=== PATIENT | male | born 1950 | race Caucasian/White ===

== ENCOUNTER → 2017-05-10 15:56 | Outpatient (CLI) | payer MEDICARE, BC ==
[2016-03-02 07:16] VITALS: BMI 26.3
[~2017-05-10 15:56] MED LIST: ASPIRIN 81 MG E81 MG PO; BAYER CHEWABLE81 MG PO; CARAFATE1 G PO; COUMADIN5 MG PO; COZAAR50 MG PO; LIPITOR20 MG PO; MS CONTIN30 MG PO; MULTIPLE VITAMI1 TA1 PO; NORCO 10/325 TA1 TA1 PO; PLAVIX75 MG PO
== END | disposition home or self-care (01) ==
LOC: D.MRI 15:56
DX: M19.019 Primary osteoarthritis, unspecified shoulder (principal)

== ENCOUNTER → 2017-05-18 21:19 | Outpatient (CLI) | payer MEDICARE, BC ==
[2016-03-02 07:16] VITALS: BMI 26.3
== END | disposition home or self-care (01) ==
LOC: D.LABREF 21:19
DX: Z11.8 Encounter for screening for other infectious and parasitic diseases (principal)

== ENCOUNTER 2017-06-05 05:52 | Inpatient (IN) | payer MEDICARE, BC ==
[2017-05-31 13:25] LABS: BASOPHILS 0.3 % (0-2); EOSINOPHILS 3.2 % (0-7); HEMATOCRIT 38.8 % (42.0-54.0); HEMOGLOBIN 12.8 g/dL (13.5-17.5); IMMATURE GRANULOCYTES 0.2 % (0-5); LYMPHOCYTES 18.6 % (15-50); MCH 31.6 pg (26.0-34.0); MCV 95.8 fL (80.0-100.0); MEAN PLATELET VOLUME 10.1 fL (7.4-10.4); MONOCYTES 8.8 % (2-11); NEUTROPHILS 68.9 % (40-80); PLATELET COUNT 208 10x3/uL (130-400); RBC 4.05 10x6/uL (4.20-6.10); RDW 13.8 % (11.5-14.5); WBC 6.3 10x3/uL (4.8-10.8)
[2017-05-31 13:33] LABS: APTT 27.3 SECONDS (22.8-39.4)
[2017-05-31 13:34] LABS: INR 0.97 (0.85-1.17); PROTIME 12.7 SECONDS (11.6-15.0)
[2017-05-31 13:37] LABS: CALC OSMOLALITY 282 mosm/kg (275-300); CALCIUM 8.8 mg/dL (8.5-10.1); CARBON DIOXIDE 30.1 mmol/L (21.0-32.0); CHLORIDE - SERUM 105 mmol/L (98-107); CREATININE - SERUM 0.9 mg/dL (0.6-1.3); POTASSIUM - SERUM 4.2 mmol/L (3.5-5.1); SODIUM 141 mmol/L (136-145); UREA NITROGEN 22 mg/dL (7-18); eGFR NON AFRICAN AMERICAN 89 mL/min (90-120)
[2017-05-31 13:55] LABS: GLUCOSE 84 mg/dL (74-106)
[2017-05-31 14:00] LABS: APPEARANCE HAZY (CLEAR); BILIRUBIN NEGATIVE (NEGATIVE); COLOR YELLOW (YELLOW); EPITHELIAL CELLS OCC /hpf (0-5); GLUCOSE NEGATIVE (NEGATIVE); KETONE NEGATIVE (NEGATIVE); LEUKOCYTE ESTERASE TRACE (NEGATIVE); NITRITE NEGATIVE (NEGATIVE); PROTEIN NEGATIVE (NEGATIVE); SPECIFIC GRAVITY 1.015 (1.005-1.020); UROBILINOGEN NORMAL (NORMAL); WHITE CELLS - URINE 0-5 /hpf (0-5)
[2017-05-31 14:01] LABS: BACTERIA FEW /hpf (NONE SEEN); MUCUS <1+ /lpf (NONE SEEN)
[~2017-06-05] VITALS: Ht 188 cm; Wt 72.7 kg
[~2017-06-05 05:52] MED LIST changes: +ARICEPT5 MG PO; +DURAGESIC1 PATCH .7 TRANSDERM
[2017-06-05 08:50] VITALS: BP 119/74; BMI 20.5
[2017-06-05 14:04] VITALS: BP 124/74
--- NOTE | 2017-06-05 14:23 | NUR ---
RECIEVED TO ROOM 2210 VIA BED FROM RECOVERY ROOM AWAKE AND ALERT ISC IN PLCE PRISON OFFICER FENTNYL CONTROLLED PER ANESTHESIA NOTED TO LEFT SHOULDER. DRESSING IN PLACE TO LEFT SHOULDER ABDUCTOR SLING APPLIED PER THIS NURSE AND RECOVERY ROOM NURSE. PT TOLERATED WELL PAIN LEVEL STATED 0 AT THIS TIME. CALL LIGHT IN REACH SIDE RAILS UP X 2 FAMILY AT BEDSIDE. PT WITH NO DISTRESS NOTED
[2017-06-05 16:41] VITALS: Ht 188 cm; Wt 72.7 kg
[2017-06-06] VITALS: BP 104/68
--- NOTE | 2017-06-06 03:47 | NUR ---
PATIENT RESTING IN BED WITH EYES CLOSED AND NO VISIBLE SIGNS OF DISTRESS. BED IN LOWEST POSITION AND CALL LIGHT WITHIN REACH.
[2017-06-06 04:00] VITALS: BP 118/67
[2017-06-06 06:24] LABS: HEMATOCRIT 39.1 % (42.0-54.0); HEMOGLOBIN 12.9 g/dL (13.5-17.5); MCH 31.4 pg (26.0-34.0); MCV 95.1 fL (80.0-100.0); MEAN PLATELET VOLUME 10.5 fL (7.4-10.4); RBC 4.11 10x6/uL (4.20-6.10); RDW 13.8 % (11.5-14.5); WBC 8.8 10x3/uL (4.8-10.8)
--- NOTE | 2017-06-06 07:25 | NUR ---
PATIENT RECEIVED ALERT IN MID COOPER POSITION. NO SIGNS OF DISTRESS NOTED. DENIES PAIN AND OTHER NEEDS. DRESSING TO LEFT SHOULDER CLEAN, DRY AND INTACT. SLING IN PLACE. SIDE RAILS UP X2. BED IN LOW POSITION. CALL LIGHT IN REACH.
[2017-06-06 07:55] VITALS: BP 106/76
--- NOTE | 2017-06-06 08:09 | NUR ---
PATIENT ALERT IN BED. NO SIGNS OF DISTRESS NOTED. SCHEDULED MEDICATION ADMINISTERED. DENIES NEEDS. SIDE RAILS UP X2. BED IN LOW POSITION. CALL LIGHT IN REACH.
--- NOTE | 2017-06-06 11:03 | NUR ---
PATIENT ALERT IN BED WATCHING TV. NO SIGNS OF DISTRESS NOTED. DENIES NEEDS. SCHEDULED MEDICATION ADMINISTERED. BED IN LOW POSITION. SIDE RAILS UP X2. CALL LIGHT IN REACH.
[2017-06-06 12:19] VITALS: BP 107/63
--- NOTE | 2017-06-06 14:00 | NUR ---
UP AMBULATING IN HALLWAY WITH PT. NO SIGNS OF DISTRESS NOTED.
[2017-06-06 15:59] VITALS: BP 116/65
[2017-06-06] MEDS ORDERED: XANAX2 MG PO (16:08)
--- NOTE | 2017-06-06 16:13 | OP ---
PATIENT NAME: TEE AVILES MEDICAL RECORD: [id number] :46 LOCATION:[id number] ADMISSION DATE:06/05/17 SURGEON: JAN BELL DO DATE OF OPERATION: 06/05/2017 PROCEDURE PERFORMED: Left reverse total shoulder arthroplasty. PREOPERATIVE DIAGNOSES: Left shoulder osteoarthritis and rotator cuff arthropathy. POSTOPERATIVE DIAGNOSES: Left shoulder osteoarthritis and rotator cuff arthropathy. INDICATIONS: Mr. Aviles is a 66-year-old male that has had left shoulder pain and limited motion for quite sometime. He was seen in the office and was tired of it hurting him and affecting his life. He does not seem to have any strength in his rotator cuff, and on x-ray, was seen to have a high-riding humeral head as well as end-stage osteoarthritis of his glenohumeral joint from the left. Reverse total shoulder was discussed with him and he decided he would like to do that in order to get function back of his arm and alleviate pain and be able to do his activities of daily living. 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 He was consented in the office and informed of risks and benefits of the procedure. SURGEON: Jan Bell DO DESCRIPTION OF PROCEDURE: The patient was given a block in the preoperative area. The patient was taken to the operative suite, laid in the supine position, given general anesthetic, and LMA was placed. The patient was then positioned in the beach chair position and the left arm was prepped and draped in sterile fashion. Time-out was performed and everyone was in agreement with the time-out. The patient was given 900 mg of clindamycin preoperatively. Once the patient was prepped and draped, an incision was made through the deltopectoral interval. Dissection was carefully made down and the cephalic vein was taken laterally. D-pec was released at the superior centimeter of the pec, was released off the humerus. The clavipectoral fascia was then breached and opened up. The biceps tendon was noted to be in the groove. It was tenodesed to the pec tendon and then tenotomy was performed at the same level. The subscapularis tendon was tagged at that time and the capsule was released in a peel method off of the anterior humerus. External rotation was made. Then, the humerus was exposed and the intramedullary guide was placed in the humerus and a cut was made with 30 degrees of retroversion. Once this was done, the glenoid was exposed. The subscapularis tendon was released off the anterior portion of the glenoid with a Martin and osteophytes were removed off the humerus. They were very large and a large osteophyte free floating in the shoulder joint itself was encountered and removed as well. The rotator cuff had been seen to be torn off the supraspinatus. There was no site at the insertion on the humerus whatsoever. Once the humerus was cut and the glenoid was then exposed, the superior labrum and the remaining bicep tendon were removed. The centering pin was then placed in the center of the glenoid and was reamed over with the reamer and then the Afrin reamer was used to finish reaming for the glenosphere. Once this was done, we used the baseplate, which was drilled for, for which we used a 25-mm baseplate with a 30-mm screw and then that was placed. A 38-mm locking screw was placed superiorly and a 23-mm locking screw was placed inferiorly on the baseplate. These were both placed and then a 36-mm glenosphere with a 4-mm lateralized offset was placed. Once that was done, the OPERATIVE REPORT [id number] TEE AVILES wound was irrigated and the humerus was then prepared up to a #6 stem and felt to have good cortical contact. The implant was trialed at that time. Standard humeral stem ____ was used and a 6-mm poly was used on the 0-mm tray. Once that was trialed, it was seen to be in good position in the conjoined tendon with appropriate tightness and did not dislocate whatsoever. The shoulders were ranged and we decided to use that implant. The implant trial was then removed and irrigated the wound as well as the humerus and the final implant was placed. Once this was done, the wound was irrigated again and dried very well and then Da was placed about the wound. ____ shoulder system was used. Once that was done, again it was trialed and seen to be in good position and had good range of motion. Then, the deltopectoral interval was closed with #0 Vicryl in a [id number]-sy-cyndf fashion. The skin was then closed with 2-0 Vicryl in inverted interrupted fashion and Prineo was placed on the skin for closure. Once this was done and the Prineo was dried, Adaptics, 4 x 4s, and ABD were placed over the incision. The patient was placed in a sling, awakened in stable condition, and taken to recovery. Blood loss was 100 mL. TRANSINT:[id number] Voice Confirmation ID: [id number] DOCUMENT ID: [id number] JAN BELL DO at 1613 CC: [id number] DICTATION DATE: 06/05/17 1315 BUSINESS SERVICES VICE PRESIDENT: 06/05/17 1527 ADM IN [place] [id number] [place] [id number]
--- NOTE | 2017-06-06 16:30 | NUR ---
PATIENT AMBULATED OFF UNIT WITH FAMILY
--- NOTE | 2017-06-06 17:45 | NUR ---
BACK TO ROOM WITH FAMILY PRESENT.
[2017-06-06 20:00] VITALS: BP 105/71
--- NOTE | 2017-06-06 21:51 | NUR ---
REC'D LYING IN BED. ALERT AND ORIENTED X4. REPORTED PAIN 6/10. WILL ADMIN PAIN MEDS PRESCRIBED. IV TO RIGHT AC WAS BLEEDING HEAVILY. REMOVED, CATHETER BENT BUT STILL INTACT. WILL CONT TO MONITOR THE AREA. PATIENT REFUSED TO HAVE ANOTHER IV PLACED. EDUCATED ON IF HE NEEDED HIS BENADRYL OR ZOFRAN THAT HE WOULD NOT BE ABLE TO HAVE IT TONIGHT DUE TO THERE NOT BEING AN IV PLACED, VERBALIZED UNDERSTANDING. NO DISTRESS NOTED. DENIED FURTHER NEEDS AT THIS TIME. INSTRUCTED TO CALL IF NEEDED ANYTHING, VERBALIZED UNDERSTANDING. BED LOW, LOCKED CALL LIGHT IN REACH.
--- NOTE | 2017-06-06 22:30 | NUR ---
PATIENT IS AWAKE, ALERT AND ORIENTED X'S 4. RESPIRATIONS ARE EVEN AND ORIENTED X'S 4. PATIENT HAS LEFT ARM IN A SLING, ELEVATED ON A PILLOW. PATIENT REQUESTED ICE WATER, BROUGHT HIM SOME ICE WATER. HE DENIES ANY OTHER NEEDS AT THIS TIME.
[2017-06-07] VITALS: BP 110/65
[2017-06-07 04:00] VITALS: BP 103/61
[2017-06-07 05:36] LABS: HEMATOCRIT 33.5 % (42.0-54.0); MCH 31.5 pg (26.0-34.0); MCHC 32.8 g/dL (31.0-37.0); MEAN PLATELET VOLUME 10.1 fL (7.4-10.4); RBC 3.49 10x6/uL (4.20-6.10); RDW 13.9 % (11.5-14.5)
[2017-06-07 05:37] LABS: WBC 5.7 10x3/uL (4.8-10.8)
--- NOTE | 2017-06-07 07:52 | NUR ---
AWAKE AND ALERT. ORIENTED X3. NO C/O AT THIS TIME. LUNGS ARE CLEAR BILATERALLY, NO COUGH NOTED. SKIN IS INTACT WITHOUT REDNESS EXCEPT INCISION TO LEFT SHOULDER WHICH IS CLEAN AND DRY. NO DRESSING AT THIS TIME. DR. BELL HERE. DISCHARGE ORDERS RECEIVED. NO IV ACCESS. SLING IS OFF AT THIS TIME. DENIES NEEDS.
[2017-06-07 07:57] VITALS: BP 129/71
[2017-06-07] MEDS ORDERED: OXYCODONE HCL5 MG PO (07:58)
--- NOTE | 2017-06-07 09:15 | NUR ---
Patient Name: TEE AVILES Admission Status: Elective Accout number: [id number] Admission Date: 06-05-2017 : 1950 Admission Diagnosis:PRIMARY OSTEOARTHRITIS, LEFT SHOULDER Attending: JAN BELL Current LOS: 2 Anticipated DC Date: Planned Disposition: Home Primary Insurance: MEDICARE A & B Discharge Planning Comments: CM met with patient to assess discharge planning needs. Patient will be discharging home to his sister's house in [facility]. Patient stated that his son, Freddie will be the one to drive him home. He denies any HH needs and does not have any DME except he has an Ice Machine from Dr Bell's office. Pt states his home environment is safe. CM will continue to assist as needed for discharge planning needs. PCP: Livan Rubalcava 1 Kimberly Malave (sister) [phone] Freddie Aviles (son) [phone] Financial Institution President: Leilani Lerma * Is the patient Alert and Oriented? Yes 0 * How many steps to enter\exit or inside your home? 1 0 * PCP Livan 0 * Pharmacy [facility] in [facility] 0 * Preadmission Environment Home with Family 0 * ADLs Independent 0 * Other Equipment ice machine 0 * List name and contact numbers for known caregivers / representatives who currently or will assist patient after discharge: Kimberly Malave (sister) [phone] Freddie Aviles (son)[phone] * Community resources currently utilized None 0 * Additional services required to return to the preadmission environment? No 0 * Can the patient safely return to the preadmission environment? Yes 0 * Has this patient been hospitalized within the prior 30 days at any hospital? No 0 Grand Total: 0
--- NOTE | 2017-06-07 10:30 | NUR ---
DISCHARGE INSTRUCTIONS GIVEN BOTH VERBALLY AND WRITTEN. ALL QUESTIONS ANSWERED. PATIENT VERBALIZED UNDERSTANDING OF SAME. WAITING ON RIDE AT THIS TIME.
--- NOTE | 2017-06-07 11:19 | NUR ---
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 DISCHARGE INSTRUCTIONS GONE OVER WITH SON AT THIS TIME. ALL QUESTIONS ANSWERED.
== END 2017-06-07 11:20 | disposition home or self-care (01) | DRG 483 ==
LOC: D.SDCHOLD 05:52 → D.MS 05:52 → D.SDCHOLD 08:45 → D.MS 13:42
PROVIDERS: ADMIT Orthopaedic Surgery
PROC: 0RRK00Z Replacement of Left Shoulder Joint with Reverse Ball and Socket Synthetic Substitute, Open Approach (ICD-10-PCS; principal; 2017-06-05 09:45)
DX: M19.012 Primary osteoarthritis, left shoulder (principal); I10 Essential (primary) hypertension; I25.10 Atherosclerotic heart disease of native coronary artery without angina pectoris

== ENCOUNTER 2017-06-15 09:04 | Emergency (ER) | payer MEDICARE, BC ==
[2017-06-05 16:41] VITALS: BMI 20.5
[~2017-06-15 09:04] MED LIST changes: +OXYCODONE HCL5 MG PO; +XANAX2 MG PO
[2017-06-15 09:28] LABS: APPEARANCE SLT CLOUDY (CLEAR); BILIRUBIN NEGATIVE (NEGATIVE); COLOR YELLOW (YELLOW); GLUCOSE NEGATIVE (NEGATIVE); KETONE NEGATIVE (NEGATIVE); NITRITE NEGATIVE (NEGATIVE); PROTEIN NEGATIVE (NEGATIVE); SPECIFIC GRAVITY 1.015 (1.005-1.020); UROBILINOGEN NORMAL (NORMAL)
[2017-06-15 09:29] LABS: BACTERIA FEW /hpf (NONE SEEN); EPITHELIAL CELLS 0-5 /hpf (0-5); MUCUS <1+ /lpf (NONE SEEN); RED CELLS - URINE >50 /hpf (0-5)
[2017-06-15 09:44] LABS: BASOPHILS 0.3 % (0-2); EOSINOPHILS 1.2 % (0-7); HEMATOCRIT 34.6 % (42.0-54.0); HEMOGLOBIN 11.4 g/dL (13.5-17.5); IMMATURE GRANULOCYTES 0.3 % (0-5); LYMPHOCYTES 12.7 % (15-50); MCH 31.6 pg (26.0-34.0); MCHC 32.9 g/dL (31.0-37.0); MCV 95.8 fL (80.0-100.0); MEAN PLATELET VOLUME 9.7 fL (7.4-10.4); NEUTROPHILS 77.5 % (40-80); RBC 3.61 10x6/uL (4.20-6.10); WBC 7.7 10x3/uL (4.8-10.8)
[2017-06-15 09:46] LABS: PLATELET COUNT 250 10x3/uL (130-400)
[2017-06-15 09:58] LABS: ALBUMIN 3.5 g/dL (3.4-5.0); ALKALINE PHOSPHATASE 73 U/L (46-116); ALT (SGPT) 23 U/L (10-68); BILIRUBIN - TOTAL 0.42 mg/dL (0.2-1.3); CALC OSMOLALITY 277 mosm/kg (275-300); CALCIUM 8.8 mg/dL (8.5-10.1); CARBON DIOXIDE 24.5 mmol/L (21.0-32.0); CHLORIDE - SERUM 103 mmol/L (98-107); CREATININE - SERUM 0.8 mg/dL (0.6-1.3); GLUCOSE 95 mg/dL (74-106); POTASSIUM - SERUM 3.9 mmol/L (3.5-5.1); PROTEIN - SERUM 7.2 g/dL (6.4-8.2); SODIUM 137 mmol/L (136-145); UREA NITROGEN 24 mg/dL (7-18); eGFR NON AFRICAN AMERICAN > 90 mL/min (90-120)
[2017-06-15 10:05] LABS: THYROID STIMULATING HORMONE 1.85 uIU/mL (0.36-3.74)
== END 2017-06-15 10:16 | disposition home or self-care (01) ==
LOC: D.ER 09:04
PROVIDERS: Emergency Medicine
DX: F39 Unspecified mood [affective] disorder (principal); G30.0 Alzheimer's disease with early onset; F02.80 Dementia in other diseases classified elsewhere, unspecified severity, without behavioral disturbance, psychotic disturbance, mood disturbance, and anxiety; F13.90 Sedative, hypnotic, or anxiolytic use, unspecified, uncomplicated; N39.0 Urinary tract infection, site not specified; F17.200 Nicotine dependence, unspecified, uncomplicated

== ENCOUNTER 2017-06-15 20:25 | Inpatient (IN) | payer MEDICARE, BC ==
[2017-06-15 23:23] LABS: BASOPHILS 0.2 % (0-2); EOSINOPHILS 2.2 % (0-7); HEMATOCRIT 33.2 % (42.0-54.0); IMMATURE GRANULOCYTES 0.1 % (0-5); LYMPHOCYTES 16.7 % (15-50); MCH 31.5 pg (26.0-34.0); MCHC 33.1 g/dL (31.0-37.0); MCV 95.1 fL (80.0-100.0); MEAN PLATELET VOLUME 9.6 fL (7.4-10.4); NEUTROPHILS 68.8 % (40-80); PLATELET COUNT 253 10x3/uL (130-400); RBC 3.49 10x6/uL (4.20-6.10); RDW 13.9 % (11.5-14.5); WBC 8.2 10x3/uL (4.8-10.8)
[2017-06-15 23:44] LABS: ALBUMIN 3.2 g/dL (3.4-5.0); ALKALINE PHOSPHATASE 76 U/L (46-116); ALT (SGPT) 22 U/L (10-68); BILIRUBIN - TOTAL 0.31 mg/dL (0.2-1.3); CALC OSMOLALITY 283 mosm/kg (275-300); CALCIUM 8.8 mg/dL (8.5-10.1); CARBON DIOXIDE 28.6 mmol/L (21.0-32.0); CHLORIDE - SERUM 105 mmol/L (98-107); CREATININE - SERUM 0.8 mg/dL (0.6-1.3); GLUCOSE 99 mg/dL (74-106); POTASSIUM - SERUM 3.8 mmol/L (3.5-5.1); PROTEIN - SERUM 6.6 g/dL (6.4-8.2); SODIUM 141 mmol/L (136-145); UREA NITROGEN 21 mg/dL (7-18); eGFR NON AFRICAN AMERICAN > 90 mL/min (90-120)
[2017-06-16 02:36] VITALS: BP 121/76; BMI 20.8
--- NOTE | 2017-06-16 02:46 | NUR ---
RN NOTE: ADMISSION ASSESSMENT COMPLETE. PT RESTING QUIETLY AT THIS TIME.
--- NOTE | 2017-06-16 03:00 | NUR ---
PT WAS GIVEN ATIVAN PER ORDER, PER REQUEST FOR SLEEP...BECAME VERY CONFUSED AND AGGITATED. CALLED DR WATTERS WHO GAVE ORDER FOR HALDOL 5 MG IM NOW.
--- NOTE | 2017-06-16 03:04 | NUR ---
PATIENT WAS GIVEN 2MG ATIVAN PER REQUEST FOR SOME ANXIETY AND SLEEP. AFTER IT WAS GIVEN IV HE STARTED HALLUCINATING, DISORIENTATED TO PLACE, TIME, AND SITUATION. NURSE IS CURRENTLY SITTING 1:1
--- NOTE | 2017-06-16 03:32 | NUR ---
PT RECEIVED IM HALDOL WITH NOT MUCH IMPROVEMENT...STILL VERY CONFUSED AND RESTLESS...CLIMBING OUT OF BED...TRYING TO TAKE EVERYTHING HE CAN GET HIS HANDS ON APART, INCLUDING IV AND DEVELOPMENT TRAINER. LUIS ANTONIO IS STAYING IN ROOM WITH PT AT THIS TIME ...1 ON 1
[2017-06-16 03:42] VITALS: BP 105/63
[2017-06-16 04:00] VITALS: BP 113/65
--- NOTE | 2017-06-16 04:07 | NUR ---
PATIENT STILL AGITATED, VISUAL AND AUDITORY HALLUCINATIONS, ATTEMPTING TO GET OOB. NURSE 1 TO 1
--- NOTE | 2017-06-16 05:06 | NUR ---
PATIENT'S SON RAFAEL CALLED AND INFORMED THAT HIS FATHER IS TRYING TO GET OUT OF BED CONTINUOUSLY AND WAS ASKED IF HE COULD SIT WITH HIM. HE SAID HE WOULD BE UP HERE IN ABOUT AN HOUR. PATIENT IS STILL BEING WATCHED A 1:1
--- NOTE | 2017-06-16 07:15 | NUR ---
AWAKE AND ALERT. ORIENTED TO SELF ONLY. ATTEMPTS TO REORIENT WITHOUT SUCCESS. GETS SOMEWHAT BELIGERANT WHEN STAFF TRIES TO MOVE HIM IN A CERTAIN WAY. LUNGS HAVE FAINT CRACKLES THROUGHOUT LUNG RAI. OCCASSIONAL DRY COUGH NOTED. SKIN IS INTACT WITHOUT REDNESS BUT HEALING INCISION LINE NOTED TO LEFT SHOULDER. IV TO LEFT WRIST AREA IS PATENT WITHOUT REDNESS AT INSERTION SITE. WILL CONTINUE TO SIT WITH PATIENT FOR SAFETY.
--- NOTE | 2017-06-16 08:15 | NUR ---
CONTINUES CONFUSED AND ATTEMPTED TO GET OOB PER SELF MULTIPLE TIMES. ASSISTANCE OFFERED WITH USE OF URINAL WITHOUT SUCCESS.
--- NOTE | 2017-06-16 09:15 | NUR ---
CONTINUES CONFUSED AND BELIGERANT AT TIMES. FAMILY HERE NOW TO SIT WITH PATIENT.
--- NOTE | 2017-06-16 10:15 | NUR ---
NO CHANGES AT THIS TIME. ORIENTED TO SELF ONLY.
[2017-06-16 11:07] VITALS: BP 107/65
--- NOTE | 2017-06-16 11:30 | NUR ---
SPOKE WITH DR LIM ON PHONE RE FAMILY'S CONCERNS. NEW ORDERS RECEIVED. UP TO BR WITH 2 PERSON ASSIST. CONTINUES CONFUSED. HAD LARGE BM AND VOIDED CLEAR YELLOW URINE. SKIN CARE PER FAMILY. POSITIONED IN BED FOR COMFORT. GIVEN 5MG VALIUM SLOW IVP PER ORDERS. WILL MONITOR.
--- NOTE | 2017-06-16 11:50 | NUR ---
SLEEPING WITH EYES CLOSED AND SNORING. FAMILY AT BEDSIDE. RESPIRATIONS EVEN AND UNLABORED.
--- NOTE | 2017-06-16 13:00 | NUR ---
CONTINUES TO REST WITH EYES CLOSED.
--- NOTE | 2017-06-16 15:30 | NUR ---
GETTING RESTLESS WITH EXTREMETIES JERKING. GIVEN SCHEDULED VALIUM PO. PATIENT CHEWED UP MEDS AND SPIT WATER AT STAFF.
--- NOTE | 2017-06-16 17:17 | NUR ---
REFUSED TO WAKE UP AND EAT SUPPER. TOOK MEDS WITH SIPS OF WATER. NO NEEDS NOTED. BED ALARM IS ON AT THIS TIME.
--- NOTE | 2017-06-16 18:11 | NUR ---
RESTING QUIETLY IN BED WITH EYES CLOSED. NO CHANGES NOTED.
--- NOTE | 2017-06-16 19:00 | NUR ---
REPORT RECEIVED AND CARE OF PT ASSUMED. PT SITTING UP IN CHAIR VISITING WITH SON. LESS CONFUSED THAT HE WAS LAST NIGHT PER SON. IV IN LEFT FA PATENT WITH NS INFUSING AT 150 ML / HR. TELEMETRY NOT ON AT THIS TIME PT KEEPS PULLING OFF. WILL MONITOR CLOSLEY FOR NEEDS.
--- NOTE | 2017-06-16 19:40 | NUR ---
PT SITTING UP IN CHAIR EATING DINNER LIKE HE IS STARVING. ATE 100% INCLUDING AN ENSURE.
--- NOTE | 2017-06-16 19:55 | NUR ---
GAVE PT A SANDWICH TRAY HE STATES HE IS STILL HUNGRY...ATE 100%. GOOD APPETITE AND IS ALERT AND ORIENTED X4.
[2017-06-16 20:00] VITALS: BP 108/71
[2017-06-16 20:05] LABS: APPEARANCE HAZY (CLEAR); BILIRUBIN NEGATIVE (NEGATIVE); COLOR YELLOW (YELLOW); GLUCOSE NEGATIVE (NEGATIVE); KETONE NEGATIVE (NEGATIVE); NITRITE NEGATIVE (NEGATIVE); PROTEIN NEGATIVE (NEGATIVE); SPECIFIC GRAVITY 1.015 (1.005-1.020); UROBILINOGEN NORMAL (NORMAL)
[2017-06-16 20:14] LABS: BACTERIA MODERATE /hpf (NONE SEEN); EPITHELIAL CELLS OCC /hpf (0-5); MUCUS <1+ /lpf (NONE SEEN); RED CELLS - URINE >50 /hpf (0-5); WHITE CELLS - URINE OCC /hpf (0-5)
--- NOTE | 2017-06-16 21:03 | NUR ---
HS MEDICATIONS GIVEN. POSITIONED PT IN BED FOR COMFORT WITH WARM BLANKET. SON LEAVING AT THIS TIME. BED ALARM ACTIVATED AND DOOR WILL REMAIN OPEN FOR PT SAFETY.
--- NOTE | 2017-06-16 22:53 | NUR ---
PT RESTING ON RIGHT SIDE WITH EYES CLOSED AND UNLABORED BREATHING. BED ALARM IN USE.
[2017-06-17 06:45] LABS: BASOPHILS 0.3 % (0-2); EOSINOPHILS 2.4 % (0-7); HEMATOCRIT 33.8 % (42.0-54.0); IMMATURE GRANULOCYTES 0.1 % (0-5); LYMPHOCYTES 12.7 % (15-50); MCH 31.3 pg (26.0-34.0); MCHC 32.5 g/dL (31.0-37.0); MCV 96.3 fL (80.0-100.0); MEAN PLATELET VOLUME 9.7 fL (7.4-10.4); MONOCYTES 9.7 % (2-11); NEUTROPHILS 74.8 % (40-80); PLATELET COUNT 243 10x3/uL (130-400); RBC 3.51 10x6/uL (4.20-6.10); RDW 14.1 % (11.5-14.5); WBC 6.7 10x3/uL (4.8-10.8)
[2017-06-17 07:08] LABS: ALBUMIN 2.7 g/dL (3.4-5.0); ALKALINE PHOSPHATASE 74 U/L (46-116); ALT (SGPT) 20 U/L (10-68); BILIRUBIN - TOTAL 0.36 mg/dL (0.2-1.3); CALC OSMOLALITY 284 mosm/kg (275-300); CALCIUM 8.2 mg/dL (8.5-10.1); CARBON DIOXIDE 25.2 mmol/L (21.0-32.0); CHLORIDE - SERUM 107 mmol/L (98-107); CREATININE - SERUM 0.6 mg/dL (0.6-1.3); GLUCOSE 98 mg/dL (74-106); POTASSIUM - SERUM 4.2 mmol/L (3.5-5.1); PROTEIN - SERUM 5.7 g/dL (6.4-8.2); SODIUM 142 mmol/L (136-145); UREA NITROGEN 17 mg/dL (7-18); eGFR NON AFRICAN AMERICAN > 90 mL/min (90-120)
--- NOTE | 2017-06-17 07:47 | NUR ---
AWAKE AND ALERT. ORIENTED X3. NO C/O AT THIS TIME. LUNGS ARE CLEAR BILATERALLY, NO COUGH NOTED. SKIN IS INTACT WITHOUT REDNESS EXCEPT HEALING INCISION LINE TO LEFT SHOULDER WHICH HAS NO SIGNS OF INFECTION. IV TO LEFT FOREARM IS PATENT WITHOUT REDNESS AT INSERTION SITE. DENIES NEEDS.
--- NOTE | 2017-06-17 09:00 | NUR ---
FAMILY AT BEDSIDE. PATIENT CONTINUES A/O X3. DENIES NEEDS.
[2017-06-17 09:48] VITALS: BP 86/45
--- NOTE | 2017-06-17 11:30 | NUR ---
UP TO BR WITH ONE PERSON SBA. VOIDED WITHOUT DIFFICULTY. POSITIONED IN BED FOR COMFORT.
[2017-06-17 12:05] VITALS: BP 137/74
--- NOTE | 2017-06-17 12:54 | NUR ---
ATE ALL OF MEAL. DENIES NEEDS.
[2017-06-17] MEDS ORDERED: VALIUM5 MG PO (13:21)
--- NOTE | 2017-06-17 14:55 | NUR ---
DISCHARGED TO HOME AMBULATORY WITH FAMILY. DISCHARGE INSTRUCTIONS GIVEN BOTH VERBALLY AND WRITTEN. ALL QUESTIONS ANSWERED. PATIENT AND SON VERBALIZED UNDERSTANDING OF SAME. NEEDED PRESCRIPTIONS GIVEN TO PATIENT. IV TO LEFT FOREARM D/C WITH CATHETER INTACT.
== END 2017-06-17 14:57 | disposition home or self-care (01) | DRG 897 ==
LOC: D.ER 20:25 → D.MS 06-16 00:47
PROVIDERS: Family Medicine; ADMIT Family Medicine
DX: F13.231 Sedative, hypnotic or anxiolytic dependence with withdrawal delirium (principal); N39.0 Urinary tract infection, site not specified; T42.4X5A Adverse effect of benzodiazepines, initial encounter; I10 Essential (primary) hypertension; F03.90 Unspecified dementia, unspecified severity, without behavioral disturbance, psychotic disturbance, mood disturbance, and anxiety

== ENCOUNTER → 2017-07-17 16:05 | Outpatient (CLI) | payer MEDICARE, BC ==
[~2017-07-17 16:05] MED LIST changes: +VALIUM5 MG PO
== END | disposition home or self-care (01) ==
LOC: D.CT 16:00
DX: N20.0 Calculus of kidney (principal)

== ENCOUNTER → 2018-05-23 10:05 | Outpatient (CLI) | payer MEDICARE, BC | END | disposition home or self-care (01) | LOC: D.NM 10:05 | DX: C61 Malignant neoplasm of prostate (principal) ==

== ENCOUNTER → 2018-11-12 14:58 | Outpatient (CLI) | payer MEDICARE, BC | END | disposition home or self-care (01) | LOC: D.RAD 14:58 | PROVIDERS: ATTEND Family Medicine | DX: M50.30 Other cervical disc degeneration, unspecified cervical region (principal) ==

== ENCOUNTER → 2018-11-22 10:11 | Outpatient (CLI) | payer MEDICARE, BC | END | disposition home or self-care (01) | LOC: D.MRI 10:11 | PROVIDERS: ATTEND Family Medicine | DX: M50.30 Other cervical disc degeneration, unspecified cervical region (principal) ==

== ENCOUNTER → 2019-02-25 10:40 | Outpatient (CLI) | payer MEDICARE, BC | END | disposition home or self-care (01) | LOC: D.CT 02-18 15:00 | PROVIDERS: ATTEND Internal Medicine Hematology & Oncology | DX: C61 Malignant neoplasm of prostate (principal) ==

== ENCOUNTER → 2019-10-03 11:22 | Outpatient (CLI) | payer MEDICARE, BC | END | disposition home or self-care (01) | LOC: D.CT 11:22 | PROVIDERS: ATTEND Internal Medicine Hematology & Oncology | DX: C61 Malignant neoplasm of prostate (principal); R10.9 Unspecified abdominal pain; R10.2 Pelvic and perineal pain ==

== ENCOUNTER → 2019-11-19 07:17 | Outpatient (CLI) | payer MEDICARE, BC | END | disposition home or self-care (01) | LOC: D.NM 07:17 | PROVIDERS: ATTEND Clinical Nurse Specialist Family Health | DX: M25.562 Pain in left knee (principal) ==

== ENCOUNTER 2019-12-29 09:12 | Emergency (ER) | payer MEDICARE, BC ==
[~2019-12-29] VITALS: Ht 188 cm; Wt 90.5 kg
[2019-12-29 09:15] VITALS: BP 117/75; Ht 188 cm; Wt 90.5 kg
[2019-12-29] MEDS ORDERED: MORPHINE SULFAT45 MG PO (09:16)
[2019-12-29] MEDS ORDERED: CARAFATE1 G PO (09:17)
[2019-12-29 09:45] LABS: BASOPHILS 0.2 % (0-2); EOSINOPHILS 1.1 % (0-7); HEMATOCRIT 44.8 % (42.0-54.0); HEMOGLOBIN 14.6 g/dL (13.5-17.5); IMMATURE GRANULOCYTES 0.3 % (0-5); LYMPHOCYTES 7.6 % (15-50); MCH 30.8 pg (26.0-34.0); MCHC 32.6 g/dL (31.0-37.0); MCV 94.5 fL (80.0-100.0); MEAN PLATELET VOLUME 10.9 fL (7.4-10.4); MONOCYTES 7.8 % (2-11); RBC 4.74 10x6/uL (4.20-6.10); WBC 13.5 10x3/uL (4.8-10.8)
[2019-12-29 09:49] LABS: PLATELET COUNT 131 10x3/uL (130-400)
[2019-12-29 09:54] LABS: APTT 31.6 SECONDS (22.8-39.4); CALC OSMOLALITY 280 mosm/kg (275-300); CALCIUM 9.2 mg/dL (8.5-10.1); CARBON DIOXIDE 27.7 mmol/L (21.0-32.0); CHLORIDE - SERUM 105 mmol/L (98-107); CREATININE - SERUM 1.3 mg/dL (0.6-1.3); GLUCOSE 85 mg/dL (74-106); INR 1.18 (0.85-1.17); SODIUM 139 mmol/L (136-145); UREA NITROGEN 24 mg/dL (7-18); eGFR NON AFRICAN AMERICAN 58 mL/min (90-120)
[2019-12-29 10:16] LABS: ALKALINE PHOSPHATASE 109 U/L (30-120); ALT (SGPT) 23 U/L (10-68); BILIRUBIN - TOTAL 0.97 mg/dL (0.2-1.3); CKMB 2.8 U/L (0.0-3.6); CREATINE KINASE 65 UL (21-232); MAGNESIUM - SERUM 2.2 mg/dL (1.8-2.4); PROTEIN - SERUM 8.3 g/dL (6.4-8.2)
[2019-12-29 10:34] LABS: TROPONIN-I 0.367 ng/mL (0.000-0.060)
== END 2019-12-29 10:29 | disposition home or self-care (01) ==
LOC: D.ER 09:12
PROVIDERS: Emergency Medicine
DX: R55 Syncope and collapse (principal); F03.90 Unspecified dementia, unspecified severity, without behavioral disturbance, psychotic disturbance, mood disturbance, and anxiety; I10 Essential (primary) hypertension

== ENCOUNTER → 2020-01-12 14:43 | Outpatient (CLI) | payer MEDICARE, BC ==
[2019-12-29 09:15] VITALS: BMI 25.6
[~2020-01-12 14:43] MED LIST changes: +MORPHINE SULFAT45 MG PO
== END | disposition home or self-care (01) ==
LOC: D.US 14:43
PROVIDERS: ATTEND Clinical Nurse Specialist Family Health
DX: R22.41 Localized swelling, mass and lump, right lower limb (principal)

== ENCOUNTER → 2020-03-11 20:10 | Outpatient (CLI) | payer MEDICARE, BC ==
[2019-12-29 09:15] VITALS: BMI 25.6
[2020-03-11 20:20] LABS: BASOPHILS 0.7 % (0-2); EOSINOPHILS 4.2 % (0-7); HEMOGLOBIN 12.4 g/dL (13.5-17.5); LYMPHOCYTES 27.1 % (15-50); MCH 30.2 pg (26.0-34.0); MCHC 31.8 g/dL (31.0-37.0); MCV 94.9 fL (80.0-100.0); MEAN PLATELET VOLUME 10.4 fL (7.4-10.4); MONOCYTES 13.6 % (2-11); NEUTROPHILS 54.4 % (40-80); PLATELET COUNT 237 10x3/uL (130-400); RBC 4.11 10x6/uL (4.20-6.10); RDW 15.2 % (11.5-14.5); WBC 5.8 10x3/uL (4.8-10.8)
[2020-03-11 21:24] LABS: ERYTHROCYTE SEDIMENTATION RATE 9 mm/hr (0-20)
== END | disposition home or self-care (01) ==
LOC: D.LABREF 20:10
PROVIDERS: ATTEND Family Medicine
DX: Z96.652 Presence of left artificial knee joint (principal)

== ENCOUNTER → 2020-03-15 07:52 | Outpatient (CLI) | payer MEDICARE, BC ==
[2019-12-29 09:15] VITALS: BMI 25.6
== END | disposition home or self-care (01) ==
LOC: D.NM 07:52
PROVIDERS: ATTEND Clinical Nurse Specialist Family Health
DX: Z96.652 Presence of left artificial knee joint (principal)

== ENCOUNTER 2020-03-24 09:23 | Inpatient (IN) | payer MEDICARE, BC ==
[~2020-03-24] VITALS: Ht 188 cm; Wt 95.0 kg
[2020-04-20] MEDS ORDERED: ELIQUIS5 MG PO (09:53)
[2020-04-20] MEDS ORDERED: TRAZODONE HCL150 MG PO (09:54)
[2020-04-20] MEDS ORDERED: NEO-POLY-DEXAM3.5 GM EACH EYE (09:55)
[2020-04-21] MEDS ORDERED: LOVENOX INJ100 MG/ML SC (10:52)
[2020-04-21 11:51] LABS: APTT 33.6 SECONDS (22.8-39.4); INR 1.08 (0.85-1.17); PROTIME 13.9 SECONDS (11.6-15.0)
[2020-04-21 11:52] LABS: BASOPHILS 0.5 % (0-2); EOSINOPHILS 3.6 % (0-7); HEMATOCRIT 41.5 % (42.0-54.0); HEMOGLOBIN 13.5 g/dL (13.5-17.5); IMMATURE GRANULOCYTES 0.2 % (0-5); LYMPHOCYTES 29.6 % (15-50); MCH 30.5 pg (26.0-34.0); MCHC 32.5 g/dL (31.0-37.0); MCV 93.9 fL (80.0-100.0); MONOCYTES 11.3 % (2-11); NEUTROPHILS 54.8 % (40-80); PLATELET COUNT 209 10x3/uL (130-400); RBC 4.42 10x6/uL (4.20-6.10); RDW 13.9 % (11.5-14.5); WBC 5.6 10x3/uL (4.8-10.8)
[2020-04-21 11:55] LABS: BILIRUBIN NEGATIVE (NEGATIVE); GLUCOSE NEGATIVE (NEGATIVE); KETONE NEGATIVE (NEGATIVE); NITRITE NEGATIVE (NEGATIVE); UROBILINOGEN NORMAL (NORMAL)
[2020-04-21 12:01] LABS: BACTERIA NONE SEEN /hpf (NEGATIVE); EPITHELIAL CELLS NSEEN /hpf (0-5); RED CELLS - URINE 0-5 /hpf (0-5); WHITE CELLS - URINE NSEEN /hpf (NEGATIVE)
[2020-04-21 12:09] LABS: CALC OSMOLALITY 286 mosm/kg (275-300); CALCIUM 9.2 mg/dL (8.5-10.1); CARBON DIOXIDE 32.2 mmol/L (21.0-32.0); CHLORIDE - SERUM 104 mmol/L (98-107); GLUCOSE 100 mg/dL (74-106); POTASSIUM - SERUM 4.4 mmol/L (3.5-5.1); SODIUM 143 mmol/L (136-145); UREA NITROGEN 17 mg/dL (7-18); eGFR NON AFRICAN AMERICAN 78 mL/min (90-120)
[2020-04-27] VITALS (13 sets, daily range): BP systolic 100–139; BP diastolic 64–97; BMI 26.3; BMI 26.9
--- NOTE | 2020-04-27 08:30 | NUR ---
THROUGH TRAFFIC KEPT TO A MINIMUM. HIBALCENS AND ALCOHOL USED TO CLEAN BEFORE PREPPING. STERILE GOWNED AND GLOVED TO PREP WITH CHLORAPREP.
--- NOTE | 2020-04-27 11:22 | NUR ---
FAMILY IN ROOM. QUESTIONS ANSWERED. CL IN REACH. BED ALARM ON. WCTM
--- NOTE | 2020-04-27 12:45 | NUR ---
SISTER PAPO IN ROOM. CL IN REACH. BED ALARM ON. NO FURTHER NEEDS AT THIS TIME. WCTM
--- NOTE | 2020-04-27 20:00 | NUR ---
ALERT RESTING IN BED C/O PAIN AND SWELLING TO RIGHT KNEE, WANTING CPM REMOVED EXPLAINED THAT HAD ONLY BEEN ON FOR 1 1/2 HRS STATES TAKE IT OFF I CANT STAND IT ANYMORE, REMOVED PER PT REQUEST, SEE SHIFT ASSESSMENT, CALL LIGHT IN REACH
[2020-04-28] VITALS: BP 94/63
--- NOTE | 2020-04-28 02:30 | NUR ---
ASSISTED UP TO BATHROOM WITH WALKER VOIDED WITHOUT DIFFICULTY RETURNED TO BED TOLERATED WELL
[2020-04-28 05:00] VITALS: BP 110/75
--- NOTE | 2020-04-28 06:35 | OP ---
PATIENT NAME: TEE AVILES MEDICAL RECORD: [id number] :46 LOCATION:[facility] D.1208 ADMISSION DATE:04/27/20 SURGEON: IZAIAH BELL DO DATE OF OPERATION: 04/27/2020 PROCEDURE PERFORMED: Right total knee arthroplasty. PREOPERATIVE DIAGNOSIS: Right knee osteoarthritis. POSTOPERATIVE DIAGNOSIS: Right knee osteoarthritis. INDICATIONS: Mr. Aviles is a 69-year-old male who has attempted all nonoperative management for right knee osteoarthritis including physical therapy, injections to no avail. It is affecting his activities of daily living. He is tired of dealing with that and wanted something done surgically. He is aware of the risks including infection, bleeding, damage to nerves and vessels, need for further surgery, failure of implants, fracture, blood clots, and even . He signed the consent. SURGEON: Izaiah Bell DO DESCRIPTION OF PROCEDURE: The patient was taken to the operative suite after given a block by anesthesia in preoperative area, taken to the operative suite, laid in supine position, given general anesthetic, and LMA was placed. The right lower extremity was then prepped and draped in sterile fashion. A time-out was performed. Everyone was in agreeance with correct, side, site, the patient, and procedure. He will be given 80 mg of gentamicin and 2 g of Ancef preoperatively. He did not give TXA due to his blood clot history. After the right leg was prepped and draped, I marked out the incision and covered in Ioban. I then began with a 10 blade scalpel. I made careful dissection down to the capsule and did a medial parapatellar approach through the capsule with a fresh 10 blade, coagulating any bleeders at the time with Aquamantys. I then everted the patella. I removed part of the fat pad and milled down the patella for implant. I then flexed up the knee, took out the ACL, and entered the femoral canal with a drill and then cut the distal femur with 5 degrees valgus and removed that and then cut the proximal tibia off the guide and removed the bone. I then brought the knee to extension, removed the menisci, and coagulated any bleeders in the medial and lateral compartments. I then flexed the knee up, measured the femur to be 72.5. I then put the four-in-one cutting block on and cut the distal femur with the four-in-one cutting block. After that, I placed the trial on after removing the bone and floated in the patella and ranged and marked the rotation. After the rotation was marked, I drilled for the patella and the lug holes on the femur. I removed the trials. I exposed the tibia and reamed and punched it and put extra holes in the tibia for the cement. The cement was then mixed. The tibia then irrigated. I put the cement in the tibia and on the implant, impacted in place. Excess cement was then removed. I then impacted the femur on, put a 10 poly in between and brought to extension. I then addressed the patella by irrigating the holes and putting in cement on the patella and on the patella implant, squeezing it in place, holding it in place. I removed any excess cement. I then irrigated the knee for 3 minutes and left it in 10% povidone-iodine with 500 mL normal saline solution. I then irrigated that out after 3 minutes with a liter of normal saline. By that time, the cement had dried and we trialed the poly up to a 14. The 14 fit the best. I put in a 14 poly and locked it into place with locking pin. I then put in the Da and vancomycin and tobramycin powder and closed the capsule with #1 OPERATIVE REPORT [id number] TEE AVILES pop-offs, tying that in a [id number] fashion. This was done by myself; Jorge Cody, certified surgical glass ribbon machine operator assistant student; and Mindy Strong, certified surgical glass ribbon machine operator assistant. Brett then closed the skin with 2-0 Vicryl in interrupted fashion. A ZipLine was placed on the knee and put a Prevena Restor VAC on due to his anticoagulation medicine to catch any leaking or draining. He was then dressed with Maldonado wrap and a CORTEZ hose stocking up to the knee. He was awaken and taken to recovery in stable condition. BLOOD LOSS: Approximately 300 mL. COMPLICATIONS: None. NTS:[id number] Voice Confirmation ID: [id number] DOCUMENT ID: [id number] IZAIAH BELL DO at 0635 CC: [id number] DICTATION DATE: 04/27/20914 KNIFE FINISHER: 04/27/20 2125 ADM IN [facility] [address] [place] [id number]
[2020-04-28 08:11] LABS: HEMATOCRIT 32.8 % (42.0-54.0); HEMOGLOBIN 10.7 g/dL (13.5-17.5); LYMPHOCYTES 17.4 % (15-50); MCH 31.2 pg (26.0-34.0); MCHC 32.6 g/dL (31.0-37.0); MCV 95.6 fL (80.0-100.0); MEAN PLATELET VOLUME 10.9 fL (7.4-10.4); NEUTROPHILS 65.8 % (40-80); RBC 3.43 10x6/uL (4.20-6.10); RDW 13.6 % (11.5-14.5); WBC 8.4 10x3/uL (4.8-10.8)
[2020-04-28 08:14] LABS: PLATELET COUNT 157 10x3/uL (130-400)
[2020-04-28 10:03] LABS: ANION GAP 9.1 mmol/L (8-16); CARBON DIOXIDE 27.9 mmol/L (21.0-32.0); CREATININE - SERUM 1.2 mg/dL (0.6-1.3)
[2020-04-28 10:12] VITALS: Ht 188 cm; Wt 95.0 kg
[2020-04-28 10:55] VITALS: BP 102/63
--- NOTE | 2020-04-28 14:42 | NUR ---
PATIENT IN BED. FAMILY IN ROOM. DENIES PAIN OR NEEDS AT THIS TIME. CALL LIGHT IN REACH, BED LOW POSITION, WILL CONTINUE TO MONITOR.
[2020-04-28 16:00] VITALS: BP 120/73
--- NOTE | 2020-04-28 20:00 | NUR ---
RESTING IN BED, AROUSED EASILY, DENIES PAIN OR NEEDS AT THIS TIME, SEE SHIFT ASSESSMENT, CALL LIGHT IN REACH
[2020-04-28 21:20] VITALS: BP 95/49
[2020-04-29 04:30] VITALS: BP 112/60
--- NOTE | 2020-04-29 05:41 | NUR ---
REFUSED CPM THIS AM, STATES ILL JUST WAIT UNTILL I GET HOME, I HAVE ONE AT HOME THAT IS SO MUCH BETTER THAN THIS ONE
[2020-04-29 07:30] LABS: BASOPHILS 0.3 % (0-2); EOSINOPHILS 1.6 % (0-7); IMMATURE GRANULOCYTES 0.1 % (0-5); LYMPHOCYTES 15.4 % (15-50); MCH 30.5 pg (26.0-34.0); MCHC 33.1 g/dL (31.0-37.0); MEAN PLATELET VOLUME 10.2 fL (7.4-10.4); MONOCYTES 12.8 % (2-11); NEUTROPHILS 69.8 % (40-80); PLATELET COUNT 148 10x3/uL (130-400); RDW 13.5 % (11.5-14.5)
[2020-04-29 07:37] LABS: HEMATOCRIT 24.5 % (42.0-54.0); HEMOGLOBIN 8.1 g/dL (13.5-17.5); MCV 92.1 fL (80.0-100.0); RBC 2.66 10x6/uL (4.20-6.10)
[2020-04-29 07:44] LABS: CALC OSMOLALITY 271 mosm/kg (275-300); CALCIUM 8.2 mg/dL (8.5-10.1); CARBON DIOXIDE 25.9 mmol/L (21.0-32.0); CHLORIDE - SERUM 103 mmol/L (98-107); GLUCOSE 117 mg/dL (74-106); POTASSIUM - SERUM 3.9 mmol/L (3.5-5.1); SODIUM 135 mmol/L (136-145); UREA NITROGEN 16 mg/dL (7-18); eGFR NON AFRICAN AMERICAN 78 mL/min (90-120)
[2020-04-29 08:00] VITALS: BP 115/68
--- NOTE | 2020-04-29 08:42 | NUR ---
PATIENT UP IN CHAIR AFTER BREAKFAST. DENIES PAIN OR NEEDS. CALL LIGHT IN REACH. WILL CONTINUE TO MONITOR.
[2020-04-29] MEDS ORDERED: oxyCODONE IR PO (08:50)
[2020-04-29] MEDS ORDERED: KEFLEX500 MG PO (08:52)
[2020-04-29] MEDS ORDERED: FERROUS SULFAT325 MG PO (08:52)
[2020-04-29] MEDS ORDERED: VISTARIL50 MG PO (08:53)
[2020-04-29 11:00] VITALS: BP 118/76
--- NOTE | 2020-04-29 12:01 | MORECARE ---
CASE MANAGEMENT DISCHARGE SUMMARY PATIENT: TEE AVILES UNIT: [id number] ADM DATE: 04/27/20 AGE: 69 : 48 SEX: M ROOM/BED: D.1208 AUTHOR: RITESH DARLING PHYSICIAN: REFERRING PHYSICIAN: JAN BELL DO DATE OF SERVICE: 04/29/20 Discharge Plan Patient Name: TEE AVILES [facility] [facility] 1950 Planned Disposition: Outpatient PT\OT Anticipated Discharge Date: 04/29/20 Discharge Date: Expected LOS: 2 Initial Reviewer: [email or web address] Initial Review Date: 04/29/2020 Generated: 04/29/20 1:00 pm DCPIA - Discharge Planning Initial Assessment Updated by [email or web address]: Elaine Shearer on 04/29/20 11:59 am * Is the patient Alert and Oriented? Yes * How many steps to enter\exit or inside your home? * PCP Dr. Licona * Pharmacy [facility] * Preadmission Environment Home Alone * ADLs Independent * Equipment Grab Bars Rolling Walker Shower Chair * Other Equipment CPM, Ice Machine * List name and contact numbers for known caregivers / representatives who currently or will assist patient after discharge: Adelaida Aviles, Daughter, Ashli Strong, Sister, * Verbal permission to speak to the caregivers and representatives has been obtained from the patient. Yes * Community resources currently utilized Other * Please name any agencies selected above. DME: [employer] * Additional services required to return to the preadmission environment? Yes * Can the patient safely return to the preadmission environment? Yes * Has this patient been hospitalized within the prior 30 days at any hospital? No Patient Name: TEE AVILES Page [id number] at 1201 All edits/amendments must be made on the electronic document DICTATION DATE: 04/29/20 1200 TALENT MANAGEMENT SPECIALIST: OLIVIA 04/29/20 1200 RPT#: [id number] DC DATE: STATUS: ADM IN [facility] [address] [place] [address] END OF REPORT
--- NOTE | 2020-04-29 12:09 | MORECARE ---
CASE MANAGEMENT DISCHARGE SUMMARY PATIENT: TEE AVILES UNIT: [id number] ADM DATE: 04/27/20 AGE: 69 : 48 SEX: M ROOM/BED: D.1208 AUTHOR: PHONG,DOC PHYSICIAN: REFERRING PHYSICIAN: JAN BELL DO DATE OF SERVICE: 04/29/20 Discharge Plan Patient Name: TEE AVILES Facility: [facility]:[place] : 1950 Planned Disposition: Outpatient PT\OT Anticipated Discharge Date: 04/29/20 Discharge Date: Expected LOS: 2 Initial Reviewer: [email or web address] Initial Review Date: 04/29/2020 Generated: 04/29/20 1:08 pm Comments DCP- Discharge Planning Updated by [email or web address]: Elaine Shearer on 04/29/20 11:[address] Patient Name: TEE AVILES Admission Status: Urgent Accout number: [id number] Admission Date: 04-27-2020 : 1950 Admission Diagnosis: Attending: JAN BELL Current LOS: 2 Anticipated DC Date: 04-29-2020 Planned Disposition: Outpatient PT\OT Primary Insurance: MEDICARE A & B Discharge Planning Comments: CM met with patient to discuss discharge planning / needs. Patient states that prior to hospitalization he lived at home alone independent. States his discharge plan is to go to his sister's house, [address] [facility] [phone]. States the home environment is safe. States his sister will transport him home and to his therapy appointments. Wants to go to outpatient therapy at [facility] on [facility] [address] [place]. Signed JEFF for [facility] and [employer], DME. CM explained and patient signed DC IMM. Copies on chart.CM called and spoke with Devi Mcneilrow at [facility]'s [facility]. Appointment scheduled for 04/30/2020, at 08:45. Patient is aware of appointment time. Denies any other discharge planning needs at this time. CM faxed records to [facility] as requested. CM will continue to follow and assist as needed with discharge planning / needs. System Admin: Elaine Shearer DCPIA - Discharge Planning Initial Assessment Updated by [email or web address]: Elaine Shearer on 04/29/20 11:59 am * Is the patient Alert and Oriented? Yes * How many steps to enter\exit or inside your home? * PCP Dr. Licona * Pharmacy [facility] 1 * Preadmission Environment Home Alone * ADLs Independent * Equipment Grab Bars Rolling Walker Shower Chair * Other Equipment CPM, Ice Machine * List name and contact numbers for known caregivers / representatives who currently or will assist patient after discharge: Adelaida Aviles, Daughter, Ashli Strong, Sister, * Verbal permission to speak to the caregivers and representatives has been obtained from the patient. Yes * Community resources currently utilized Other * Please name any agencies selected above. DME: [employer] * Additional services required to return to the preadmission environment? Yes * Can the patient safely return to the preadmission environment? Yes * Has this patient been hospitalized within the prior 30 days at any hospital? No Coverage Notice Reviewer: [id number] Shearer Notice Issued Date-Time: 04/29/2020 10:45 Notice Type: Patient Choice Letter Notice Delivered To: Patient Relationship to Patient: Self Visual Arts Teacher Name: Delivery Method: HAND - Hand Delivered Aisha Days: Prior Verbal Notification: Recipient Understood Notice: Yes Recipient Signature: Yes Med Rec Note Co-signed by Attending: Coverage Notice Comment: [facility] LLOYD Reynolds Reviewer: [id number] Shearer Notice Issued Date-Time: 04/29/2020 10:45 Notice Type: IM Discharge Notice Notice Delivered To: Patient Relationship to Patient: Self Visual Arts Teacher Name: Delivery Method: HAND - Hand Delivered Aisha Days: Prior Verbal Notification: Recipient Understood Notice: Yes Recipient Signature: Yes Med Rec Note Co-signed by Attending: Coverage Notice Comment: Last DP export: 04/29/20 11:01 a Patient Name: TEE AVILES Page [phone] at 1209 All edits/amendments must be made on the electronic document DICTATION DATE: 04/29/201207 [employer]RAFT[employer] INSTRUCTOR: OLIVIA 04/29/201207 RPT#: [id number] DC DATE: STATUS: ADM IN [facility] [address] [place] [address] END OF REPORT
--- NOTE | 2020-04-29 12:16 | MORECARE ---
CASE MANAGEMENT DISCHARGE SUMMARY PATIENT: TEE AVILES UNIT: [id number] ADM DATE: 04/27/20 AGE: 69 : 48 SEX: M ROOM/BED: D.1208 AUTHOR: PHONG,DOC PHYSICIAN: REFERRING PHYSICIAN: JAN BELL DO DATE OF SERVICE: 04/29/20 Discharge Plan Patient Name: TEE AVILES Facility: [facility]:[place] : 1950 Planned Disposition: Outpatient PT\OT Anticipated Discharge Date: 04/29/20 Discharge Date: Expected LOS: 2 Initial Reviewer: [email or web address] Initial Review Date: 04/29/2020 Generated: 04/29/20 1:15 pm Comments DCP- Discharge Planning Updated by [email or web address]: Elaine Shearer on 04/29/20 11:[address] Patient Name: TEE AVILES Admission Status: Urgent Accout number: [id number] Admission Date: 04-27-2020 : 1950 Admission Diagnosis: Attending: JAN BELL Current LOS: 2 Anticipated DC Date: 04-29-2020 Planned Disposition: Outpatient PT\OT Primary Insurance: MEDICARE A & B Discharge Planning Comments: CM met with patient to discuss discharge planning / needs. Patient states that prior to hospitalization he lived at home alone independent. States his discharge plan is to go to his sister's house, [address] [facility] [phone]. States the home environment is safe. States his sister will transport him home and to his therapy appointments. Wants to go to outpatient therapy at [facility] on [facility] [address] [place]. Signed JEFF for [facility] and [employer], DME. CM explained and patient signed DC IMM. Copies on chart.CM called and spoke with Devi Mcneilrow at [facility]. Appointment scheduled for 04/30/2020, at 08:45. Patient is aware of appointment time. Denies any other discharge planning needs at this time. CM faxed records to [facility] as requested. CM will continue to follow and assist as needed with discharge planning / needs. Public Relations Associate: Elaine Shearer DCPIA - Discharge Planning Initial Assessment Updated by [email or web address]: Elaine Shearer on 04/29/20 11:59 am * Is the patient Alert and Oriented? Yes * How many steps to enter\exit or inside your home? * PCP Dr. Licona * Pharmacy [facility] 1 * Preadmission Environment Home Alone * ADLs Independent * Equipment Grab Bars Rolling Walker Shower Chair * Other Equipment CPM, Ice Machine * List name and contact numbers for known caregivers / representatives who currently or will assist patient after discharge: Adelaida Aviles, Daughter, Ashli Strong, Sister, * Verbal permission to speak to the caregivers and representatives has been obtained from the patient. Yes * Community resources currently utilized Other * Please name any agencies selected above. DME: [employer] * Additional services required to return to the preadmission environment? Yes * Can the patient safely return to the preadmission environment? Yes * Has this patient been hospitalized within the prior 30 days at any hospital? No External Providers External Provider: [facility] Next Contact Date: Service Request Date: Service Type: Resolution: Reviewer: Comments: Coverage Notice Reviewer: [email or web address] Shearer Notice Issued Date-Time: 04/29/2020 10:45 Notice Type: Patient Choice Letter Notice Delivered To: Patient Relationship to Patient: Self Medical Legal Investigator Name: Delivery Method: HAND - Hand Delivered Aisha Days: Prior Verbal Notification: Recipient Understood Notice: Yes Recipient Signature: Yes Med Rec Note Co-signed by Attending: Coverage Notice Comment: [facility] LLOYD Reynolds Reviewer: [email or web address] Diana Shearer Notice Issued Date-Time: 04/29/2020 10:45 Notice Type: IM Discharge Notice Notice Delivered To: Patient Relationship to Patient: Self Medical Legal Investigator Name: Delivery Method: HAND - Hand Delivered Aisha Days: Prior Verbal Notification: Recipient Understood Notice: Yes Recipient Signature: Yes Med Rec Note Co-signed by Attending: Coverage Notice Comment: Last DP export: 04/29/20 11:09 a Patient Name: TEE AVILES Page [phone] at 1216 All edits/amendments must be made on the electronic document DICTATION DATE: 04/29/20 1215 FOIL SPINNER: OLIVIA 04/29/20 1215 RPT#: [id number] DC DATE: STATUS: ADM IN [facility] [address] [place] [address] END OF REPORT
--- NOTE | 2020-04-29 14:08 | NUR ---
DISCHARGE TEACHING COMPLETE. NO FURTHER QUESTIONS. IV CATH REMOVED. CATH TIP INTACT. PATIENT LEFT UNIT VIA WHEELCHAIR TO HOME.
--- NOTE | 2020-04-29 17:10 | MORECARE ---
CASE MANAGEMENT DISCHARGE SUMMARY PATIENT: TEE AVILES UNIT: [id number] ADM DATE: 04/27/20 AGE: 69 : 48 SEX: M ROOM/BED: D.1208 AUTHOR: PHONG,DOC PHYSICIAN: REFERRING PHYSICIAN: JAN BELL DO DATE OF SERVICE: 04/29/20 Discharge Plan Patient Name: TEE AVILES Facility: [facility]:[place] : 1950 Planned Disposition: Outpatient PT\OT Anticipated Discharge Date: 04/29/20 Discharge Date: 04/29/2020 Expected LOS: 2 Initial Reviewer: [email or web address] Initial Review Date: 04/29/2020 Generated: 04/29/20 6:09 pm Comments DCP- Discharge Planning Updated by [email or web address]: Elaine Shearer on 04/29/20 11:[address] Patient Name: TEE AVILES Admission Status: Urgent Accout number: [id number] Admission Date: 04-27-2020 : 1950 Admission Diagnosis: Attending: JAN BELL Current LOS: 2 Anticipated DC Date: 04-29-2020 Planned Disposition: Outpatient PT\OT Primary Insurance: MEDICARE A & B Discharge Planning Comments: CM met with patient to discuss discharge planning / needs. Patient states that prior to hospitalization he lived at home alone independent. States his discharge plan is to go to his sister's house, [address] [facility] [phone]. States the home environment is safe. States his sister will transport him home and to his therapy appointments. Wants to go to outpatient therapy at [facility] on [facility] [address] [place]. Signed JEFF for [facility] and [employer], DME. CM explained and patient signed DC IMM. Copies on chart.CM called and spoke with Devi Helm at [facility]'s [facility]. Appointment scheduled for 04/30/2020, at 08:45. Patient is aware of appointment time. Denies any other discharge planning needs at this time. CM faxed records to [facility] as requested. CM will continue to follow and assist as needed with discharge planning / needs. Direct Customer Service Representative: Elaine Shearer DCPIA - Discharge Planning Initial Assessment Updated by [id number]: Elaine Shearer on 04/29/20 11:59 am * Is the patient Alert and Oriented? Yes * How many steps to enter\exit or inside your home? * PCP Dr. Licona * Pharmacy [facility] 1 * Preadmission Environment Home Alone * ADLs Independent * Equipment Grab Bars Rolling Walker Shower Chair * Other Equipment CPM, Ice Machine * List name and contact numbers for known caregivers / representatives who currently or will assist patient after discharge: Adelaida Aviles, Daughter, Ashli Strong, Sister, * Verbal permission to speak to the caregivers and representatives has been obtained from the patient. Yes * Community resources currently utilized Other * Please name any agencies selected above. DME: [employer] * Additional services required to return to the preadmission environment? Yes * Can the patient safely return to the preadmission environment? Yes * Has this patient been hospitalized within the prior 30 days at any hospital? No Coverage Notice Reviewer: [id number] hSearer Notice Issued Date-Time: 04/29/2020 10:45 Notice Type: Patient Choice Letter Notice Delivered To: Patient Relationship to Patient: Self Jockey Agent Name: Delivery Method: HAND - Hand Delivered Aisha Days: Prior Verbal Notification: Recipient Understood Notice: Yes Recipient Signature: Yes Med Rec Note Co-signed by Attending: Coverage Notice Comment: [facility] LLOYD Reynolds Reviewer: [id number] Shearer Notice Issued Date-Time: 04/29/2020 10:45 Notice Type: IM Discharge Notice Notice Delivered To: Patient Relationship to Patient: Self Jockey Agent Name: Delivery Method: HAND - Hand Delivered Aisha Days: Prior Verbal Notification: Recipient Understood Notice: Yes Recipient Signature: Yes Med Rec Note Co-signed by Attending: Coverage Notice Comment: Last DP export: 04/29/20 11:16 a Patient Name: TEE AVILES Page [phone] at 1710 All edits/amendments must be made on the electronic document DICTATION DATE: 04/29/201708 CMM PROGRAMMER: OLIVIA 04/29/201708 RPT#: [id number] DC DATE:04/29/20 STATUS: DIS IN [facility] [address] [place] [address] END OF REPORT
== END 2020-04-29 14:10 | disposition home or self-care (01) | DRG 470 ==
LOC: D.SDCHOLD 04-21 10:00 → D.M3 04-27 10:00
PROVIDERS: Family Medicine Adult Medicine; ADMIT Orthopaedic Surgery; ATTEND Orthopaedic Surgery
PROC: 0SRC0J9 Replacement of Right Knee Joint with Synthetic Substitute, Cemented, Open Approach (ICD-10-PCS; principal; 2020-04-27 07:00)
DX: M17.11 Unilateral primary osteoarthritis, right knee (principal); I10 Essential (primary) hypertension; I25.10 Atherosclerotic heart disease of native coronary artery without angina pectoris; K21.9 Gastro-esophageal reflux disease without esophagitis; F03.90 Unspecified dementia, unspecified severity, without behavioral disturbance, psychotic disturbance, mood disturbance, and anxiety; Z87.891 Personal history of nicotine dependence

== ENCOUNTER → 2020-03-24 12:23 | Outpatient (CLI) | payer MEDICARE, BC ==
[2019-12-29 09:15] VITALS: BMI 25.6
== END | disposition home or self-care (01) ==
LOC: D.LABREF 12:23
PROVIDERS: ATTEND Orthopaedic Surgery
DX: M17.11 Unilateral primary osteoarthritis, right knee (principal)

== ENCOUNTER → 2020-12-22 08:12 | Outpatient (CLI) | payer MEDICARE, BC ==
[2020-04-28 10:12] VITALS: BMI 26.9
--- NOTE | ~2020-12-22 | ST ---
PATIENT:TEE MCCOLLUM MEDICAL RECORD: [id number] SEX: M LOCATION:[facility] ORDER #: ADMISSION DATE: 12/22/20 AGE OF PATIENT: 70 REFERRING PHYSICIAN: INTERPRETING PHYSICIAN: SUSANNE JUSTIN MD DATE OF SERVICE: 12/22/2020 GATED: Normal. Normal wall motion. Normal wall thickening. Calculated EF 71%. SPECT IMAGING: SPECT imaging. 1. Short axis view shows a fixed defect along the mid inferior base without significant reversibility. This is confirmed in the horizontal axis with a fixed inferobasal defect with no significant reversibility. 2. Vertical axis: Vertical axis shows good uptake along the lateral wall and septum. FINAL IMPRESSION: 1. Normal gated with normal wall motion, normal ejection fraction 71%. 2. Abnormal SPECT imaging with a fixed inferobasal defect with no significant reversibility. FINAL RECOMMENDATIONS: This is a stable scan of this gentleman with known history of coronary artery disease. No active ischemia is noted. LV function remains normal. Continue risk factor modification. Medical management is recommended. TRANSINT:[id number] Voice Confirmation ID: [id number] DOCUMENT ID: [id number] SUSANNE JUSTIN MD CC: [id number] DICTATION DATE: 12/22/20 1629 FIELD AUDITOR: 12/23/20 0514 DEP CLI 12/22/20 [place] [id number] [place] [address]
[~2020-12-22 08:12] MED LIST changes: +ELIQUIS5 MG PO; +FERROUS SULFAT325 MG PO; +KEFLEX500 MG PO; +LOVENOX INJ100 MG/ML SC; +NEO-POLY-DEXAM3.5 GM EACH EYE; +TRAZODONE HCL150 MG PO; +VISTARIL50 MG PO; +oxyCODONE IR PO
== END | disposition home or self-care (01) ==
LOC: D.HCCARDIO 08:12
PROVIDERS: ATTEND Internal Medicine Interventional Cardiology
DX: I25.10 Atherosclerotic heart disease of native coronary artery without angina pectoris (principal)

== ENCOUNTER → 2021-01-03 11:29 | Outpatient (CLI) | payer MEDICARE ==
[2020-04-28 10:12] VITALS: BMI 26.9
== END | disposition home or self-care (01) ==
LOC: D.US 11:29
PROVIDERS: ATTEND Internal Medicine Cardiovascular Disease
DX: R42 Dizziness and giddiness (principal); R06.00 Dyspnea, unspecified; I25.10 Atherosclerotic heart disease of native coronary artery without angina pectoris; I10 Essential (primary) hypertension